=== PATIENT | male | born 1975 | race Two or more races ===

== ENCOUNTER 2023-08-13 19:52 | Emergency (ER) | payer OTHER ==
[~2023-08-13] VITALS: Ht 170.2 cm; Wt 100.0 kg
[2023-08-13 20:40] VITALS: BP 130/76; PULSE 60; RESP 18; TEMP 98.5; O2SAT 97
[2023-08-13] MEDS: KETOROLAC TROMETH 60MG/2ML VIAL IM ONE (22:10)
[2023-08-13] MEDS ORDERED: IBUP-1455 PO (22:53)
[2023-08-13] MEDS ORDERED: HYDR-4798 PO (22:53)
== END 2023-08-13 23:19 | disposition home or self-care (01) ==
LOC: ER 19:52
DX: S52.571A Other intraarticular fracture of lower end of right radius, initial encounter for closed fracture (principal); W17.89XA Other fall from one level to another, initial encounter; Y93.89 Activity, other specified; Y92.89 Other specified places as the place of occurrence of the external cause; Y99.8 Other external cause status
CPT/HCPCS: 29125; 73030; 73090; 73110; 96372; 99284; J1885